=== PATIENT | female | born 1990 | race Caucasian/White ===

== ENCOUNTER 2019-08-02 23:09 | Emergency (ER) | payer OTHER ==
[2019-08-03 00:02] VITALS: TEMP 97.8; BMI 36.9
--- NOTE | 2019-08-03 00:24 | PDOC ---
History of Present Illness <SujataGilda - Last Filed: 08/03/19 02:24> - History of Present Illness Initial Comments: Ms. Chauhan is a 29 y/o female with PMH significant for pre-diabetes, presenting today for nausea, vomiting x1, lightheadedness, "feeling like food is stuck in her throat." Reports that this started this morning around 8am and she has not had similar symptoms before. Denies abdominal pain. Denies dysuria or changes in stool. Denies chest pain/shortness of breath. Denies dizziness. Denies vision changes. LNMP: 1 month ago <Nuno Bridges - Last Filed: 08/05/19 20:30> - General Chief Complaint: Weakness Stated Complaint: LOW BLOOD PRESSURE Time Seen by Provider: 08/03/19 00:09 Past History <Gilda Ernst - Last Filed: 08/03/19 02:24> - Past Medical History COPD: No - Psycho Social/Smoking Cessation Hx Smoking History: Never smoked Have you smoked in the past 12 months: No Hx Alcohol Use: Yes Drug/Substance Use Hx: No <Nuno Bridges - Last Filed: 08/05/19 20:30> - Past Medical History Allergies/Adverse Reactions: Allergies Allergy/AdvReac Type Severity Reaction Status Date / Time No Known Allergies Allergy Verified 08/02/19 23:42 Home Medications: Ambulatory Orders Cephalexin [Keflex] 500 mg PO BID #14 capsule 08/03/19 Meclizine HCl 25 mg PO Q6H PRN #20 tab.chew 08/03/19 Review of Systems - Review of Systems Comments:: GENERAL/CONSTITUTIONAL: No fever or chills. No weakness._ HEAD, EYES, EARS, NOSE AND THROAT: No change in vision. No change in hearing. No sore throat._ CARDIOVASCULAR: No chest pain or shortness of breath_ RESPIRATORY: Denies cough, hemoptysis_ GASTROINTESTINAL: Reports nausea and vomiting. No diarrhea or constipation._ GENITOURINARY: No dysuria, frequency, or change in urination._ MUSCULOSKELETAL: No joint or muscle swelling or pain. No neck or back pain._ SKIN: No rash_ NEUROLOGIC: Reports dizziness, lightheadedness, vertigo, headache. ENDOCRINE: No increased thirst. No abnormal weight change_ HEMATOLOGIC/LYMPHATIC: No anemia, easy bleeding, or history of blood clots._ ALLERGIC/IMMUNOLOGIC: No hives or skin allergy._ <Nuno Bridges - Last Filed: 08/05/19 20:30> *Physical Exam - Vital Signs Last Vital Signs Temp Pulse Resp BP Pulse Ox 97.8 F 78 17 124/86 99 08/02/19 23:40 08/02/19 23:40 08/02/19 23:40 08/02/19 23:40 08/03/19 00:52 <Gilda Ernst - Last Filed: 08/03/19 02:24> - Vital Signs Last Vital Signs Temp Pulse Resp BP Pulse Ox 97.8 F 78 17 124/86 99 08/02/19 23:40 08/02/19 23:40 08/02/19 23:40 08/02/19 23:40 08/02/19 23:40 - Physical Exam Comments: GENERAL: Awake, alert, and oriented to person/place/time, in no acute distress_ HEAD: No signs of trauma, normocephalic, atraumatic _ EYES: PERRLA, EOMI, sclera anicteric, conjunctiva clear_ ENT: Hearing grossly normal, nares patent, oropharynx clear without exudates. No uvular deviation. Moist mucosa_ NECK: Normal ROM, supple, no lymphadenopathy, JVD, or masses_ LUNGS: No distress, speaks in full sentences, clear to auscultation bilaterally _ HEART: Regular rate and rhythm, normal S1 and S2, no murmurs appreciated, peripheral pulses normal and equal bilaterally._ ABDOMEN: Soft, nontender, normoactive bowel sounds. No guarding, no rebound. No masses_ EXTREMITIES: Normal inspection, Normal range of motion, no edema. No clubbing or cyanosis_ NEUROLOGICAL: Cranial nerves II through XII grossly intact. Normal speech, normal gait, no focal sensorimotor deficits. Cerebellar testing negative. [place]- Hallpike negative. SKIN: Warm, Dry, normal turgor, no rashes or lesions noted_ <Nuno Bridges - Last Filed: 08/05/19 20:30> ED Treatment Course - LABORATORY CBC & Chemistry Diagram: 08/03/19 01:00 08/03/19 01:41 - ADDITIONAL ORDERS Additional order review: Laboratory Results 08/03/19 08/03/19 08/03/19 01:41 01:00 01:00 Sodium 141 Potassium 3.6 Chloride 109 H Carbon Dioxide 25 Anion Gap 7 L BUN 14.3 Creatinine 0.7 Est GFR (CKD-EPI)AfAm 133.81 Est GFR (CKD-EPI)NonAf 115.45 Random Glucose 164 H Calcium 7.8 L Total Bilirubin 0.2 AST 46 H ALT 99 H Alkaline Phosphatase 81 Total Protein 6.4 Albumin 3.3 L Total Amylase Lipase Cancelled Serum , Qual Negative Urine Color Urine Appearance Urine pH Ur Specific [place] Urine Protein Urine Glucose (UA) Urine Ketones Urine Blood Urine Nitrite Urine Bilirubin Urine Urobilinogen Ur Leukocyte Esterase Urine WBC (Auto) Urine Casts (Auto) U Epithel Cells (Auto) Urine Bacteria (Auto) Urine HCG, Qual 08/03/19 08/03/19 08/03/19 01:00 00:50 00:50 Sodium Cancelled Potassium Cancelled Chloride Cancelled Carbon Dioxide Cancelled Anion Gap Cancelled BUN Cancelled Creatinine Cancelled Est GFR (CKD-EPI)AfAm Cancelled Est GFR (CKD-EPI)NonAf Cancelled Random Glucose Cancelled Calcium Cancelled Total Bilirubin Cancelled AST Cancelled ALT Cancelled Alkaline Phosphatase Cancelled Total Protein Cancelled Albumin Cancelled Total Amylase Cancelled Lipase Cancelled Serum , Qual Urine Color Yellow Urine Appearance Turbid Urine pH 6.5 Ur Specific [place] 1.022 Urine Protein Negative Urine Glucose (UA) Negative Urine Ketones Negative Urine Blood Negative Urine Nitrite Negative Urine Bilirubin Negative Urine Urobilinogen 0.2 Ur Leukocyte Esterase 3+ H Urine WBC (Auto) 165 Urine Casts (Auto) 7 U Epithel Cells (Auto) 26.9 Urine Bacteria (Auto) 1515.7 Urine HCG, Qual Negative 08/03/19 01:00 RBC 4.57 MCV 86.3 MCHC 32.8 RDW 13.6 MPV 9.3 Neutrophils % 49.4 Lymphocytes % 40.7 H Monocytes % 7.8 Eosinophils % 1.4 Basophils % 0.7 - Medications Given in the ED: ED Medications Discontinued Medications Generic Name Dose Route Start Last Admin Trade Name Freq PRN Reason Stop Dose Admin Ceftriaxone Sodium 1,000 mg/ 50 mls @ 100 mls/hr 08/03/19 01:09 08/03/19 01: 21 Dextrose IVPB 08/03/19 01:38 100 mls/hr ONCE ONE Administration Meclizine HCl 25 mg 08/03/19 01:03 08/03/19 01:09 Antivert - PO 08/03/19 01:04 25 mg ONCE ONE Administration Metoclopramide HCl 10 mg 08/03/19 00:53 08/03/19 01:03 Reglan Injection - IVPUSH 08/03/19 00:54 10 mg ONCE ONE Administration Sodium Chloride 1,000 ml 08/03/19 00:43 08/03/19 00:58 Normal Saline - IV 08/03/19 00:44 1,000 ml ONCE ONE Administration Sodium Chloride 1,000 ml 08/03/19 00:53 08/03/19 02:16 Normal Saline - IV 08/03/19 00:54 1,000 ml ONCE ONE Administration <Gilda Ernst - Last Filed: 08/03/19 02:24> - LABORATORY CBC & Chemistry Diagram: 08/03/19 01:00 08/03/19 01:41 <Nuno Bridges - Last Filed: 08/05/19 20:30> Medical Decision Making - Medical Decision Making 08/03/19 0045 29F hx of pre-DM presenting today with headache, vertigo, lightheadedness, nausea, vomiting x1. -cbc, cmp, lipase -ua, uc, upreg 08/03/19 01:09 Labs reviewed and wnl. UA shows signs of UTI. -ceftriaxone 1g 08/03/19 02:00 Pt reassessed. Reports that she is the nausea and dizziness has resolved. Plan to d/c home, f/u PCP. -keflex 500 mg BID 1 week outpatient -meclizine 25 mg q6h PRN <Nuno Bridges - Last Filed: 08/05/19 20:30> Discharge - Admission No <Gilda Ernst - Last Filed: 08/03/19 02:24> - Discharge Information Problems reviewed: Yes - Admission No <Nuno Bridges - Last Filed: 08/05/19 20:30> - Discharge Information Clinical Impression/Diagnosis: Nausea, UTI (urinary tract infection), Vertigo Condition: Stable Disposition: HOME - Additional Discharge Information Prescriptions: Cephalexin [Keflex] 500 mg PO BID #14 capsule Meclizine HCl 25 mg PO Q6H PRN #20 tab.chew PRN Reason: Vertigo - Follow up/Referral Referrals: Kun Bajwa MD [Staff Physician] - - Patient Discharge Instructions Additional Instructions: Please make a follow up appointment with your primary care physician (referral provided here if you do not have one) to follow up your elevated lab values ( liver function tests and blood glucose). Please take Keflex 500 mg every 12 hours for 1 week. Please take Meclizine 25 mg as needed (no more than every 6 hours) for your dizziness and vertigo. If you experience any new, worsening, or concerning symptoms, such as severe headache, weakness, loss of sensation, or any other concerns, please return to the emergency department.
[2019-08-03] MEDS ORDERED: SODIUM CHLORIDE 0.9% 500 ML INFUS.BAG IV ONE ×2 (00:43→00:53)
[2019-08-03] MEDS ORDERED: METOCLOPRAMIDE HCL INJECTION 10 MG/2 ML VIAL IVPUSH ONE (00:53)
[2019-08-03] MEDS ORDERED: METOCLOPRAMIDE HCL INJECTION 10 MG/2 ML VIAL ONE (01:00)
[2019-08-03 01:02] LABS: EPI CELLS 26.9 /HPF (0-5/HPF); HYALINE CASTS 7 /lpf (0-8); PH,URINE 6.5 (5.0-8.0); URINE APPEARANCE TURBID; URINE BACTERIA 1515.7 /hpf (NEGATIVE); URINE BILIRUBIN NEGATIVE (NEGATIVE); URINE COLOR YELLOW; URINE GLUCOSE (UA) NEGATIVE (NEGATIVE); URINE KETONE NEGATIVE (NEGATIVE); URINE LEUK ESTERASE 3+ (NEGATIVE); URINE NITRITE NEGATIVE (NEGATIVE); URINE PROTEIN NEGATIVE (NEGATIVE); URINE UROBILINOGEN 0.2 mg/dL (0.2-1.0); URINE WBC 165 /hpf (0-5)
[2019-08-03] MEDS ORDERED: MECLIZINE HCL 25 MG TABLET (FP) PO ONE (01:03)
[2019-08-03] MEDS ORDERED: MECLIZINE HCL 25 MG TABLET (FP) ONE (01:06)
[2019-08-03] MEDS ORDERED: CEFTRIAXONE 1,000 MG in DEXTROSE 5%-WATER - 50 ML IVPB ONE (01:09)
--- NOTE | 2019-08-03 01:14 | PDOC ---
Attending Attestation - Resident Resident Name: Nuno Bridges - ED Attending Attestation I have performed the following: I have examined & evaluated the patient, The case was reviewed & discussed with the resident, I agree w/resident's findings & plan, Exceptions are as noted - HPI HPI: 08/03/19 01:11 29-year-old female here today complaining of headache nausea vomiting and vertigo. Patient states her symptoms started yesterday describes a spinning- like sensation also describes a lightheaded component. Has had recent facial sinus congestion denies any fevers or chills denies any urinary symptoms vertigo is described as a spinning sensation worse with moving she also is complaining of feeling a tingling sensation in her legs earlier today but denies any weakness no changes to her speech or vision states she is not currently last period was 1 month ago - Physicial Exam PE: 08/03/19 01:13 Awake alert no acute distress faces are symmetric moist mucous membranes lungs are clear bilaterally heart is regular without murmurs rubs or gallops abdomen is soft and nontender skin is warm and dry extremities are warm well perfused there is no noted peripheral edema. Neurologically patient is awake alert oriented x3 5 out of 5 strength all 4 extremities. Cerebellar exam is normal with a normal [id number], normal gait, negative Romberg's normal alternating hand movements and a negative [place]-Hallpike however when walking the patient did become symptomatic - Medical Decision Making 08/03/19 01:13 . 29-year-old female here with nausea vomiting headache and vertigo differential includes anemia, dehydration, infection such as UTI, , dehydration positional vertigo. Plan meclizine fluids Reglan basic labs including CBC electrolytes UA and UCG. UA was noted for a UTI. Will treat with ceftriaxone and likely discuss cc on Keflex given 1 L fluid Reglan and meclizine
[2019-08-03] MEDS ORDERED: CEFTRIAXONE 1 GM/50 ML BAG ONE (01:17)
[2019-08-03 01:31] LABS: BASO % 0.7 % (0-2.0); EOS % 1.4 % (0-4.5); HEMATOCRIT 39.5 % (32.4-45.2); LYMPH % 40.7 % (8-40); MCH 28.3 pg (25.7-33.7); MCHC 32.8 g/dl (32.0-36.0); MEAN CELL VOLUME 86.3 fl (80-96); MEAN PLT VOLUME 9.3 fl (7.5-11.1); MONO % 7.8 % (3.8-10.2); NEUT % 49.4 % (42.8-82.8); PLATELET COUNT 271 K/MM3 (134-434); RBC 4.57 M/mm3 (3.60-5.2); RDW 13.6 % (11.6-15.6); WHITE BLOOD COUNT 10.2 K/mm3 (4.0-10.0)
[2019-08-03 02:16] LABS: ALBUMIN 3.3 g/dl (3.4-5.0); BILIRUBIN,TOTAL 0.2 mg/dL (0.2-1); BLOOD UREA NITROGEN 14.3 mg/dL (7-18); CALCIUM 7.8 mg/dL (8.5-10.1); CREATININE 0.7 mg/dL (0.55-1.3); POTASSIUM 3.6 mmol/L (3.5-5.1); TOT PROT 6.4 g/dl (6.4-8.2)
[2019-08-03 02:31] VITALS: BP 123/62; PULSE 62
[2019-08-03 03:11] LABS: URINE RBC 12.1 /hpf (0-4)
== END 2019-08-03 02:31 | disposition home or self-care (01) ==
LOC: JER 23:09
PROC: 3E03329 Introduction of Other Anti-infective into Peripheral Vein, Percutaneous Approach (ICD-10-PCS; principal; 2019-08-02)
PROC: 3E033GC Introduction of Other Therapeutic Substance into Peripheral Vein, Percutaneous Approach (ICD-10-PCS; 2019-08-02)
DX: N39.0 Urinary tract infection, site not specified (principal)
CPT/HCPCS: 36415; 80053; 81003; 84703; 85025; 87086; 87186; 99284-25

== ENCOUNTER 2021-04-04 02:32 | Emergency (ER) | payer OTHER ==
[2021-04-04 02:50] VITALS: BP 135/76; PULSE 72; TEMP 98; BMI 30.2
[2021-04-04] MEDS ORDERED: VANCOMYCIN 1 GM in D5W (PRE-DOCKED) 1,000 MG/250 ML IVPB ONE (04:33)
[2021-04-04] MEDS ORDERED: VANCOMYCIN 1 GRAM (PRE-DOCKED) 1,000 MG/250 ML BAG IVPB ONE (04:38)
[2021-04-04] MEDS ORDERED: LIDOCAINE HCL 1%, 10 MG/ML (50 mL VIAL) INF ONE (04:38)
[2021-04-04] MEDS ORDERED: LIDOCAINE HCL 1%, 10 MG/ML (20ML VIAL) ONE (04:42)
== END 2021-04-04 06:53 | disposition left against medical advice (07) ==
LOC: JER 02:32
PROC: 3E03329 Introduction of Other Anti-infective into Peripheral Vein, Percutaneous Approach (ICD-10-PCS; principal; 2021-04-04)
PROC: 3E033GC Introduction of Other Therapeutic Substance into Peripheral Vein, Percutaneous Approach (ICD-10-PCS; 2021-04-04)
DX: L03.011 Cellulitis of right finger (principal); L02.511 Cutaneous abscess of right hand
CPT/HCPCS: 99284-25

== ENCOUNTER 2021-04-05 13:52 | Inpatient (IN) | payer OTHER ==
[2021-04-05] MEDS ORDERED: SODIUM CHLORIDE 1,000 ML IV STA (14:55)
[2021-04-05] MEDS ORDERED: VANCOMYCIN 1 GRAM (PRE-DOCKED) 1,000 MG/250 ML BAG IVPB ONE ×2 (15:15→16:07)
[2021-04-05] MEDS ORDERED: PIPERACILLIN/TAZOB 3.375 GM 3.375 GM in DEXTROSE 5%-WATER - 50 ML IVPB ONE (15:15)
[2021-04-05 15:28] LABS: BASO % 1.1 % (0-2.0); EOS % 0.5 % (0-4.5); HEMATOCRIT 39.8 % (32.4-45.2); HEMOGLOBIN 13.3 GM/dL (10.7-15.3); LYMPH % 28.8 % (8-40); MCH 28.1 pg (25.7-33.7); MCHC 33.4 g/dl (32.0-36.0); MEAN CELL VOLUME 84.1 fl (80-96); MEAN PLT VOLUME 9.1 fl (7.5-11.1); MONO % 7.6 % (3.8-10.2); PLATELET COUNT 273 10^3/uL (134-434); RBC 4.73 M/mm3 (3.60-5.2); RDW 13.4 % (11.6-15.6); WHITE BLOOD COUNT 9.2 K/mm3 (4.0-10.0)
[2021-04-05 15:37] LABS: INR 0.99 (0.83-1.09); PROTHROMBIN TIME (PATIENT) 12.2 SEC (9.7-13.0)
[2021-04-05 15:46] LABS: CHLORIDE 102 mmol/L (98-107); SODIUM 121 mmol/L (136-145)
[2021-04-05 15:48] LABS: CALCIUM 8.1 mg/dL (8.5-10.1)
[2021-04-05 15:49] LABS: ALBUMIN 3.4 g/dl (3.4-5.0); BLOOD UREA NITROGEN 9.9 mg/dL (7-18); CO2 25 mmol/L (21-32); GLUCOSE,RANDOM 176 mg/dL (74-106)
[2021-04-05 15:52] LABS: CREATININE 0.8 mg/dL (0.55-1.3)
[2021-04-05 15:53] LABS: TOT PROT 9.4 g/dl (6.4-8.2)
[2021-04-05 15:55] LABS: ALK PHOS 79 U/L (45-117)
[2021-04-05 16:17] LABS: ANION GAP -6 MMOL/L (8-16)
[2021-04-05 17:59] LABS: CALCIUM 8.3 mg/dL (8.5-10.1)
[2021-04-05 18:00] LABS: BLOOD UREA NITROGEN 9.6 mg/dL (7-18)
[2021-04-05 18:03] LABS: CREATININE 0.7 mg/dL (0.55-1.3)
[2021-04-05] MEDS ORDERED: ACETAMINOPHEN 325 MG TABLET (FP) PO PRN (18:40)
[2021-04-05] MEDS ORDERED: NICARDIPINE 25 MG in DEXTROSE 5%-WATER - 240 ML IVPB SCH (19:00)
[2021-04-05] MEDS ORDERED: DEXTROSE 5%-WATER - 50 ML IVPB ONE (21:56)
[2021-04-05] MEDS ORDERED: PIPERACILLIN/TAZOBACTAM 3.375 GM VIAL IVPB ONE (21:56)
[2021-04-05] MEDS: PIPERACILLIN/TAZOB 3.375 GM 3.375 GM in DEXTROSE 5%-WATER - 50 ML IVPB SCH (22:00)
[2021-04-05 23:14] VITALS: BMI 35.3
[2021-04-06] MEDS ORDERED: PIPERACILLIN/TAZOBACTAM 3.375 GM VIAL IVPB ONE ×3 (02:17→17:40)
[2021-04-06] MEDS ORDERED: DEXTROSE 5%-WATER - 50 ML IVPB ONE ×3 (02:17→17:40)
[2021-04-06] MEDS: PIPERACILLIN/TAZOB 3.375 GM 3.375 GM in DEXTROSE 5%-WATER - 50 ML IVPB SCH ×3 (02:20→18:29)
[2021-04-06] MEDS ORDERED: PIPERACILLIN/TAZOB 3.375 GM 3.375 GM in DEXTROSE 5%-WATER - 50 ML IVPB SCH ×2 (03:00→21:00)
[2021-04-06] MEDS ORDERED: VANCOMYCIN 1 GRAM (PRE-DOCKED) 1,000 MG/250 ML BAG IVPB ONE (04:00)
[2021-04-06] MEDS ORDERED: VANCOMYCIN 1,000 MG in DEXTROSE 5%-WATER - 250 ML IVPB SCH ×2 (06:00→15:00)
[2021-04-06] MEDS ORDERED: INSULIN (NOVOLOG) ASPART 100 UNITS/ML 10ML VIAL ONE (06:34)
[2021-04-06] MEDS: INSULIN SLIDING SCALE (NOVOLOG) 1 VIAL SQ SCH ×3 (06:35→16:53)
[2021-04-06] MEDS: ENOXAPARIN NA (PORCINE) 40 MG/0.4 ML DISP.SYRIN SQ SCH (09:08)
[2021-04-06 09:10] LABS: BASO % 0.3 % (0-2.0); EOS % 0.7 % (0-4.5); HEMATOCRIT 39.5 % (32.4-45.2); LYMPH % 31.1 % (8-40); MCH 27.4 pg (25.7-33.7); MCHC 32.8 g/dl (32.0-36.0); MEAN CELL VOLUME 83.6 fl (80-96); MEAN PLT VOLUME 9.3 fl (7.5-11.1); MONO % 7.4 % (3.8-10.2); NEUT % 60.5 % (42.8-82.8); PLATELET COUNT 270 10^3/uL (134-434); RBC 4.73 M/mm3 (3.60-5.2); RDW 12.4 % (11.6-15.6); WHITE BLOOD COUNT 8.2 K/mm3 (4.0-10.0)
[2021-04-06 10:02] LABS: ALBUMIN 3.6 g/dl (3.4-5.0); CALCIUM 8.4 mg/dL (8.5-10.1)
[2021-04-06 10:03] LABS: BLOOD UREA NITROGEN 6.2 mg/dL (7-18); MAGNESIUM 2.3 mg/dL (1.8-2.4)
[2021-04-06 10:06] LABS: CREATININE 0.6 mg/dL (0.55-1.3); PHOSPHOROUS 2.8 mg/dL (2.5-4.9)
[2021-04-06 10:07] LABS: BILIRUBIN,TOTAL 0.4 mg/dL (0.2-1)
[2021-04-06 10:23] LABS: TOT PROT 7.3 g/dl (6.4-8.2)
[2021-04-06] MEDS ORDERED: VANCOMYCIN 1 GRAM (PRE-DOCKED) 1,000 MG/250 ML BAG IVPB SCH (14:15)
[2021-04-06] MEDS: VANCOMYCIN 1 GRAM (PRE-DOCKED) 1,000 MG/250 ML BAG IVPB SCH (14:23)
[2021-04-07] MEDS ORDERED: PIPERACILLIN/TAZOBACTAM 3.375 GM VIAL IVPB ONE ×3 (01:13→16:28)
[2021-04-07] MEDS ORDERED: DEXTROSE 5%-WATER - 50 ML IVPB ONE ×3 (01:13→16:28)
[2021-04-07] MEDS: PIPERACILLIN/TAZOB 3.375 GM 3.375 GM in DEXTROSE 5%-WATER - 50 ML IVPB SCH ×3 (01:34→17:40)
[2021-04-07] MEDS: VANCOMYCIN 1 GRAM (PRE-DOCKED) 1,000 MG/250 ML BAG IVPB SCH ×2 (02:51→15:53)
[2021-04-07] MEDS: INSULIN SLIDING SCALE (NOVOLOG) 1 VIAL SQ SCH ×3 (06:48→17:40)
[2021-04-07] MEDS: ENOXAPARIN NA (PORCINE) 40 MG/0.4 ML DISP.SYRIN SQ SCH (10:26)
[2021-04-07] MEDS ORDERED: INSULIN (NOVOLOG) ASPART 100 UNITS/ML 10ML VIAL ONE (11:13)
[2021-04-07 13:11] LABS: BASO % 1.1 % (0-2.0); EOS % 0.7 % (0-4.5); HEMATOCRIT 38.5 % (32.4-45.2); HEMOGLOBIN 13.2 GM/dL (10.7-15.3); LYMPH % 22.6 % (8-40); MCH 28.3 pg (25.7-33.7); MCHC 34.2 g/dl (32.0-36.0); MEAN CELL VOLUME 82.9 fl (80-96); MEAN PLT VOLUME 8.3 fl (7.5-11.1); NEUT % 67.6 % (42.8-82.8); PLATELET COUNT 263 10^3/uL (134-434); RBC 4.65 M/mm3 (3.60-5.2); RDW 12.7 % (11.6-15.6); WHITE BLOOD COUNT 8.8 K/mm3 (4.0-10.0)
[2021-04-07 13:34] LABS: CALCIUM 9.2 mg/dL (8.5-10.1)
[2021-04-07 13:35] LABS: ALBUMIN 3.6 g/dl (3.4-5.0); BLOOD UREA NITROGEN 10.1 mg/dL (7-18); MAGNESIUM 2.2 mg/dL (1.8-2.4)
[2021-04-07 13:37] LABS: PHOSPHOROUS 5.1 mg/dL (2.5-4.9)
[2021-04-07 13:38] LABS: CREATININE 0.7 mg/dL (0.55-1.3)
[2021-04-07 13:39] LABS: BILIRUBIN,TOTAL 0.5 mg/dL (0.2-1); TOT PROT 7.8 g/dl (6.4-8.2)
[2021-04-07] MEDS: SILVER SULFADIAZINE 1% TOP CREAM 50 GM JAR TP SCH (15:53)
[2021-04-07] MEDS: KCL 10 MEQ IVPB 10 MEQ/100 ML INFUS.BAG IVPB SCH (17:29)
[2021-04-07] MEDS ORDERED: POTASSIUM CHLORIDE TABS 20 MEQ TABLET.ER (FP) PO ONE (18:47)
[2021-04-08] MEDS ORDERED: PIPERACILLIN/TAZOBACTAM 3.375 GM VIAL IVPB ONE ×2 (01:18→09:19)
[2021-04-08] MEDS ORDERED: DEXTROSE 5%-WATER - 50 ML IVPB ONE ×2 (01:18→09:19)
[2021-04-08] MEDS: PIPERACILLIN/TAZOB 3.375 GM 3.375 GM in DEXTROSE 5%-WATER - 50 ML IVPB SCH ×2 (02:11→09:56)
[2021-04-08] MEDS: VANCOMYCIN 1 GRAM (PRE-DOCKED) 1,000 MG/250 ML BAG IVPB SCH (02:12)
[2021-04-08] MEDS: INSULIN SLIDING SCALE (NOVOLOG) 1 VIAL SQ SCH ×3 (06:01→16:27)
[2021-04-08 08:33] LABS: BASO % 0.5 % (0-2.0); EOS % 0.5 % (0-4.5); HEMATOCRIT 37.9 % (32.4-45.2); HEMOGLOBIN 12.9 GM/dL (10.7-15.3); LYMPH % 25.1 % (8-40); MCH 28.5 pg (25.7-33.7); MCHC 34.1 g/dl (32.0-36.0); MEAN CELL VOLUME 83.4 fl (80-96); MEAN PLT VOLUME 8.6 fl (7.5-11.1); MONO % 9.7 % (3.8-10.2); NEUT % 64.2 % (42.8-82.8); PLATELET COUNT 248 10^3/uL (134-434); RBC 4.54 M/mm3 (3.60-5.2); RDW 12.6 % (11.6-15.6); WHITE BLOOD COUNT 9.3 K/mm3 (4.0-10.0)
[2021-04-08 08:54] LABS: ALBUMIN 3.6 g/dl (3.4-5.0); CALCIUM 8.8 mg/dL (8.5-10.1)
[2021-04-08 08:55] LABS: MAGNESIUM 2.4 mg/dL (1.8-2.4)
[2021-04-08 08:58] LABS: CREATININE 0.7 mg/dL (0.55-1.3); PHOSPHOROUS 4.2 mg/dL (2.5-4.9)
[2021-04-08 08:59] LABS: BILIRUBIN,TOTAL 0.5 mg/dL (0.2-1); TOT PROT 7.5 g/dl (6.4-8.2)
[2021-04-08] MEDS ORDERED: PT OWN MED DRAWER 7, Y5N ONE (09:19)
[2021-04-08] MEDS: ENOXAPARIN NA (PORCINE) 40 MG/0.4 ML DISP.SYRIN SQ SCH (09:56)
[2021-04-08] MEDS: SILVER SULFADIAZINE 1% TOP CREAM 50 GM JAR TP SCH (09:57)
[2021-04-08] MEDS: CLINDAMYCIN 600MG PREMIX IVPB 600 MG/50 ML BAG IVPB SCH (17:18)
[2021-04-09] MEDS: CLINDAMYCIN 600MG PREMIX IVPB 600 MG/50 ML BAG IVPB SCH ×3 (01:06→18:02)
[2021-04-09] MEDS: INSULIN SLIDING SCALE (NOVOLOG) 1 VIAL SQ SCH ×3 (06:21→18:02)
[2021-04-09 08:37] LABS: BASO % 0.4 % (0-2.0); EOS % 0.6 % (0-4.5); HEMATOCRIT 39.3 % (32.4-45.2); HEMOGLOBIN 13.1 GM/dL (10.7-15.3); LYMPH % 26.7 % (8-40); MCHC 33.3 g/dl (32.0-36.0); MEAN PLT VOLUME 8.8 fl (7.5-11.1); MONO % 9.6 % (3.8-10.2); NEUT % 62.7 % (42.8-82.8); PLATELET COUNT 270 10^3/uL (134-434); RBC 4.68 M/mm3 (3.60-5.2); RDW 12.6 % (11.6-15.6); WHITE BLOOD COUNT 9.3 K/mm3 (4.0-10.0)
[2021-04-09 09:01] LABS: ALBUMIN 3.6 g/dl (3.4-5.0); BLOOD UREA NITROGEN 9.7 mg/dL (7-18); CALCIUM 8.9 mg/dL (8.5-10.1); MAGNESIUM 2.3 mg/dL (1.8-2.4)
[2021-04-09 09:04] LABS: CREATININE 0.8 mg/dL (0.55-1.3)
[2021-04-09 09:06] LABS: BILIRUBIN,TOTAL 0.5 mg/dL (0.2-1); TOT PROT 7.8 g/dl (6.4-8.2)
[2021-04-09] MEDS: SILVER SULFADIAZINE 1% TOP CREAM 50 GM JAR TP SCH (10:11)
[2021-04-09] MEDS: ENOXAPARIN NA (PORCINE) 40 MG/0.4 ML DISP.SYRIN SQ SCH (10:18)
[2021-04-10] MEDS: CLINDAMYCIN 600MG PREMIX IVPB 600 MG/50 ML BAG IVPB SCH ×2 (01:55→10:46)
[2021-04-10] MEDS: INSULIN SLIDING SCALE (NOVOLOG) 1 VIAL SQ SCH ×3 (06:19→16:56)
[2021-04-10 09:06] LABS: BASO % 0.5 % (0-2.0); EOS % 0.6 % (0-4.5); HEMATOCRIT 37.7 % (32.4-45.2); HEMOGLOBIN 12.9 GM/dL (10.7-15.3); LYMPH % 23.6 % (8-40); MCH 28.3 pg (25.7-33.7); MCHC 34.1 g/dl (32.0-36.0); MEAN PLT VOLUME 8.2 fl (7.5-11.1); MONO % 8.7 % (3.8-10.2); NEUT % 66.6 % (42.8-82.8); PLATELET COUNT 266 10^3/uL (134-434); RBC 4.54 M/mm3 (3.60-5.2); WHITE BLOOD COUNT 8.9 K/mm3 (4.0-10.0)
[2021-04-10 09:26] LABS: ALBUMIN 3.6 g/dl (3.4-5.0); BLOOD UREA NITROGEN 13.1 mg/dL (7-18); CALCIUM 8.9 mg/dL (8.5-10.1)
[2021-04-10 09:27] LABS: MAGNESIUM 2.4 mg/dL (1.8-2.4)
[2021-04-10 09:29] LABS: CREATININE 0.8 mg/dL (0.55-1.3)
[2021-04-10 09:30] LABS: BILIRUBIN,TOTAL 0.4 mg/dL (0.2-1); PHOSPHOROUS 4.6 mg/dL (2.5-4.9)
[2021-04-10 09:31] LABS: TOT PROT 7.9 g/dl (6.4-8.2)
[2021-04-10] MEDS: ENOXAPARIN NA (PORCINE) 40 MG/0.4 ML DISP.SYRIN SQ SCH (10:46)
[2021-04-10] MEDS: SILVER SULFADIAZINE 1% TOP CREAM 50 GM JAR TP SCH (10:46)
[2021-04-10 14:29] VITALS: BP 107/57; PULSE 76; TEMP 99
== END 2021-04-10 18:02 | disposition home or self-care (01) | DRG 383 ==
LOC: JERFT 13:52 → JER 13:52 → JERBED 18:08 → J6S 21:15
PROVIDERS: ADMIT Internal Medicine; ATTEND Internal Medicine
PROC: 0J9J0ZX Drainage of Right Hand Subcutaneous Tissue and Fascia, Open Approach, Diagnostic (ICD-10-PCS; principal; 2021-04-05)
DX: L03.011 Cellulitis of right finger (principal); L02.511 Cutaneous abscess of right hand; E87.6 Hypokalemia; B95.62 Methicillin resistant Staphylococcus aureus infection as the cause of diseases classified elsewhere; E11.9 Type 2 diabetes mellitus without complications; Z91.14 Patient's other noncompliance with medication regimen
CPT/HCPCS: 36415; 73140-TC-RT-FY; 80048; 80053; 82962; 83036; 83735; 84100; 84703; 85025; 85610; 87070; 87186; 87205; 93005; 93010; 99285-25; C9803; U0003; U0005

== ENCOUNTER 2021-11-02 11:45 | Emergency (ER) | payer SELFPAY ==
[2021-11-02 11:53] VITALS: BP 114/78; PULSE 90; TEMP 98.4; BMI 35.9
== END 2021-11-02 13:14 | disposition home or self-care (01) ==
LOC: JER 11:45
DX: O99.511 Diseases of the respiratory system complicating pregnancy, first trimester (principal); J06.9 Acute upper respiratory infection, unspecified; Z3A.12 12 weeks gestation of pregnancy
CPT/HCPCS: 87651; 87804; 99283-25; C9803; U0003; U0005

== ENCOUNTER 2021-12-06 03:15 | Emergency (ER) | payer OTHER ==
[2021-12-06 03:33] VITALS: TEMP 98; BMI 36.3
[2021-12-06] MEDS ORDERED: ACETAMINOPHEN 325 MG TABLET (FP) PO ONE (03:58)
[2021-12-06] MEDS ORDERED: ACETAMINOPHEN 325 MG TABLET (FP) ONE (04:25)
[2021-12-06 04:35] LABS: EPI CELLS 15 /uL (0-25.1); HYALINE CASTS 0 /uL (0-3.1); PH,URINE 6.5 (5.0-8.0); URINE APPEARANCE CLEAR; URINE BACTERIA 194 /uL (0-1359); URINE BILIRUBIN NEGATIVE (NEGATIVE); URINE COLOR YELLOW; URINE GLUCOSE (UA) 3+ (NEGATIVE); URINE KETONE NEGATIVE (NEGATIVE); URINE LEUK ESTERASE TRACE (NEGATIVE); URINE NITRITE NEGATIVE (NEGATIVE); URINE PROTEIN NEGATIVE (NEGATIVE); URINE RBC 5 /uL (0-23.9); URINE UROBILINOGEN 0.2 mg/dL (0.2-1.0); URINE WBC 20 /uL (0-25.8)
[2021-12-06 05:43] LABS: BASO % 0.2 % (0-2.0); EOS % 0.8 % (0-4.5); HEMATOCRIT 34.5 % (32.4-45.2); HEMOGLOBIN 11.8 GM/dL (10.7-15.3); MCH 28.5 pg (25.7-33.7); MCHC 34.1 g/dl (32.0-36.0); MEAN CELL VOLUME 83.5 fl (80-96); MONO % 6.9 % (3.8-10.2); NEUT % 64.1 % (42.8-82.8); PLATELET COUNT 338 10^3/uL (134-434); RBC 4.13 M/mm3 (3.60-5.2); RDW 13.4 % (11.6-15.6); WHITE BLOOD COUNT 7.9 K/mm3 (4.0-10.0)
[2021-12-06 06:04] LABS: CALCIUM 8.6 mg/dL (8.5-10.1)
[2021-12-06 06:05] LABS: ALBUMIN 3.1 g/dl (3.4-5.0); BLOOD UREA NITROGEN 7.3 mg/dL (7-18)
[2021-12-06 06:08] LABS: CREATININE 0.5 mg/dL (0.55-1.3)
[2021-12-06 06:09] LABS: BILIRUBIN,TOTAL 0.1 mg/dL (0.2-1); TOT PROT 6.7 g/dl (6.4-8.2)
[2021-12-06] MEDS ORDERED: POTASSIUM CHLORIDE TABS 20 MEQ TABLET.ER (FP) PO ONE ×3 (06:21→06:42)
[2021-12-06] MEDS ORDERED: MAGNESIUM SULF 50% (8.12 MEQ/2 ML-1 GM VIAL) IVPB ONE (06:26)
[2021-12-06] MEDS ORDERED: MAGNESIUM SULFATE IN WATER 2 GM/50 ML IVPB IVPB ONE (06:42)
[2021-12-06] MEDS ORDERED: CEPHALEXIN MONOHYDRATE 500 MG CAPSULE (UD) PO ONE (06:56)
[2021-12-06] MEDS ORDERED: CEPHALEXIN MONOHYDRATE 500 MG CAPSULE (UD) ONE (07:17)
[2021-12-06 09:56] VITALS: BP 115/70; PULSE 76
== END 2021-12-06 10:02 | disposition home or self-care (01) ==
LOC: JER 03:15
PROC: 3E033GC Introduction of Other Therapeutic Substance into Peripheral Vein, Percutaneous Approach (ICD-10-PCS; principal; 2021-12-06)
DX: O26.892 Other specified pregnancy related conditions, second trimester (principal); R10.9 Unspecified abdominal pain; Z3A.16 16 weeks gestation of pregnancy
CPT/HCPCS: 36415; 76815; 80053; 81003; 84702; 85025; 99284-25

== ENCOUNTER 2022-01-19 05:59 | Emergency (ER) | payer OTHER ==
[2022-01-19 06:25] VITALS: BP 130/76; PULSE 120; TEMP 99; BMI 29.9
[2022-01-19] MEDS ORDERED: ACETAMINOPHEN 325 MG TABLET (FP) PO ONE (07:26)
[2022-01-19] MEDS ORDERED: ACETAMINOPHEN 325 MG TABLET (FP) ONE ×2 (07:33)
[2022-01-20 12:08] LABS: SARS-CoV-2 NAA Not Detected (Not Detected)
== END 2022-01-19 09:05 | disposition home or self-care (01) ==
LOC: JER 05:59
DX: J09.X2 Influenza due to identified novel influenza A virus with other respiratory manifestations (principal)
CPT/HCPCS: 87804; 99283-25; C9803-CS; U0003; U0005

== ENCOUNTER 2022-11-23 16:45 | Emergency (ER) | payer OTHER ==
[2022-11-23 17:08] VITALS: BP 127/89; PULSE 67; RESP 16; TEMP 98.1; BMI 31.2
[2022-11-23 18:51] LABS: BASO % 0.3 % (0-2.0); EOS % 0.8 % (0-4.5); HEMATOCRIT 40.6 % (32.4-45.2); HEMOGLOBIN 13.9 GM/dL (10.7-15.3); MCH 27.8 pg (25.7-33.7); MCHC 34.3 g/dl (32.0-36.0); MEAN CELL VOLUME 81.1 fl (80-96); MEAN PLT VOLUME 9.1 fl (7.5-11.1); MONO % 6.1 % (3.8-10.2); NEUT % 50.8 % (42.8-82.8); PLATELET COUNT 254 10^3/uL (134-434); RDW 12.2 % (11.6-15.6); WHITE BLOOD COUNT 9.3 K/mm3 (4.0-10.0)
[2022-11-23 19:13] LABS: URINE APPEARANCE CLEAR; URINE BILIRUBIN NEGATIVE (NEGATIVE); URINE COLOR YELLOW; URINE GLUCOSE (UA) 3+ (NEGATIVE); URINE KETONE NEGATIVE (NEGATIVE); URINE LEUK ESTERASE NEGATIVE (NEGATIVE); URINE NITRITE NEGATIVE (NEGATIVE); URINE PROTEIN NEGATIVE (NEGATIVE); URINE UROBILINOGEN 0.2 mg/dL (0.2-1.0)
[2022-11-23 19:32] LABS: BLOOD UREA NITROGEN 14.9 mg/dL (7-18)
[2022-11-23 19:35] LABS: CREATININE 0.6 mg/dL (0.55-1.3)
[2022-11-23] MEDS ORDERED: ACETAMINOPHEN 500 MG TABLET (FP) PO ONE (19:37)
[2022-11-23] MEDS ORDERED: IBUPROFEN 600 MG TABLET (FP) PO ONE ×2 (19:37→19:39)
[2022-11-23] MEDS ORDERED: ACETAMINOPHEN 500 MG TABLET (FP) ONE (19:40)
== END 2022-11-23 20:10 | disposition home or self-care (01) ==
LOC: JERFT 16:45
DX: R10.9 Unspecified abdominal pain (principal)
CPT/HCPCS: 36415; 80048; 81003; 85025; 87086; 99283-25

== ENCOUNTER 2024-06-27 04:04 | Day surgery (SDC) | payer OTHER ==
[2024-06-22 14:32] VITALS: BMI 33.0
[2024-06-27] MEDS: ceFAZolin SODIUM 1 GM VIAL IVPB ONE
[2024-06-27] MEDS ORDERED: SUCCINYLCHOLINE CHLORIDE 200 MG/10 ML SYRINGE ONE (08:59)
[2024-06-27] MEDS ORDERED: ROCURONIUM BROMIDE 50 MG/5 ML SYRINGE ONE (08:59)
[2024-06-27] MEDS ORDERED: MIDAZOLAM HCL 2 MG/2 ML SINGLE DOSE VIAL ONE (09:01)
[2024-06-27] MEDS ORDERED: SUGAMMADEX SODIUM 200 MG/2 ML VIAL ONE (09:56)
[2024-06-27] MEDS: LACTATED RINGERS SOLUTION 1,000 ML IV SCH (11:20)
[2024-06-27 14:34] VITALS: BP 113/72; PULSE 88; RESP 18; TEMP 97.5
== END 2024-06-27 14:35 | disposition home or self-care (01) ==
LOC: JASU-SURG 04:04
PROVIDERS: ATTEND Specialist
PROC: 0UT74ZZ Resection of Bilateral Fallopian Tubes, Percutaneous Endoscopic Approach (ICD-10-PCS; principal; 2024-06-27 09:00)
DX: Z30.2 Encounter for sterilization (principal); E11.9 Type 2 diabetes mellitus without complications; Z79.84 Long term (current) use of oral hypoglycemic drugs; E66.9 Obesity, unspecified; Z68.33 Body mass index [BMI] 33.0-33.9, adult
CPT/HCPCS: 81025; 82962; 86850; 86900; 86901; 88302-TC; 88341-TC; 88342-TC; 94760